=== PATIENT | female | born 1930 | race Caucasian/White ===

== ENCOUNTER 2016-07-26 11:10 | Inpatient (IN) | payer MEDICARE, OTHER ==
[~2016-07-26] VITALS: Ht 160 cm; Wt 72.9 kg
[2016-07-26] MEDS ORDERED: SODIUM CHLORIDE 0.9% 1,000 ML IV ONE (11:26)
[2016-07-26 12:12] LABS: Basophils # (auto) 0 uL; Basophils % (auto) 0.1 % (0.0-2.0); Eosinophils # (auto) 0.2 uL; Eosinophils % (auto) 1.3 % (0.0-7.0); Hematocrit 34.8 % (36.0-46.0); Hemoglobin 11.8 g/dL (12.2-16.2); Lymphocytes # (auto) 2.2 uL; Lymphocytes % (auto) 16.4 % (10.0-50.0); Mean Corpuscular Hemoglobin 30.8 pg (28.0-32.0); Mean Corpuscular Hgb Conc. 33.9 g/dL (32.0-36.0); Mean Platelet Volume 9.6 fL (7.4-10.4); Monocytes # (auto) 1.4 uL; Monocytes % (auto) 9.9 % (0.0-12.0); Neutrophils # (auto) 9.9 uL; Neutrophils % (auto) 72.3 % (37.0-80.0); Platelet Count (auto) 278 10^3/uL (140-450); Red Cell Distribution Width 13.5 % (11.6-16.0); White Blood Cell 13.6 10^3/uL (4.4-10.8)
[2016-07-26 12:33] LABS: INR 1.14 (0.9-1.15); Partial Thromboplastin Time 24.1 sec (22.64-33.71); Prothrombin Time 11.7 sec (9.37-12.3)
[2016-07-26 12:48] LABS: Albumin 3.1 g/dL (3.4-5.0); BUN/Creatinine Ratio 13.5; Bilirubin, Total 0.3 mg/dL (0.2-1.0); Total Protein 6.7 g/dL (6.4-8.2)
[2016-07-26 12:57] LABS: Calcium 13.8 mg/dL (8.5-10.1); Potassium 2.8 mmol/L (3.5-5.1)
[2016-07-26 13:25] LABS: B-Type Natriuretic Peptide 403.28 pg/mL (0-100)
[2016-07-26] MEDS: MAGNESIUM SULFATE 1GM/100ML 100 ML IV SCH ×3 (14:30→17:01)
[2016-07-26] MEDS: POTASSIUM CHL 20MEQ/100ML 100 ML IV SCH ×2 (14:30→16:29)
[2016-07-26 14:35] LABS: Urine Bilirubin Negative (Negative); Urine Blood Negative /uL (Negative); Urine Color Yellow (Yellow); Urine Glucose Normal (Normal); Urine Ketone Negative (Negative); Urine Nitrite Negative (Negative); Urine RBC 1 /hpf (0 - 4); Urine Urobilinogen Normal (Negative); Urine pH 6.5 (5.0-8.0)
[2016-07-26] MEDS ORDERED: PROMETHAZINE HCL 25 MG/ML 1ML IV PRN (17:00)
[2016-07-26] MEDS ORDERED: NITROGLYCERIN 0.4 MG SL TAB SL PRN (17:00)
[2016-07-26] MEDS ORDERED: POTASSIUM CHL 10% (20 MEQ/15ML) ORAL SOLN PO ONE (17:00)
[2016-07-26] MEDS ORDERED: DEXTROSE (50%) 50ML SYRG IV PRN (17:00)
[2016-07-26] MEDS ORDERED: ACETAMINOPHEN 500 MG TAB PO PRN (17:00)
[2016-07-26] MEDS ORDERED: LORazepam 0.5 MG TAB PO PRN (17:00)
[2016-07-26] MEDS ORDERED: TEMAZEPAM 15 MG CAP PO PRN (17:00)
[2016-07-26] MEDS ORDERED: LACTULOSE 20Gm/30ML SOLN PO PRN (17:00)
[2016-07-26] MEDS ORDERED: MORPHINE SULF INJ 2 MG/ML SYRINGE 1ML IV PRN ×2 (17:00)
[2016-07-26] MEDS: SOD CHL 0.9%/ KCL 40MEQ 1,000 ML IV SCH (17:57)
[2016-07-26] MEDS ORDERED: ENOXAPARIN SOD 30 MG/0.3 ML SYRINGE SC SCH (18:00)
[2016-07-26 18:10] LABS: Temperature: 22.9 C (20.0-25.0)
[2016-07-26] MEDS ORDERED: VALS160T43 PO (18:16)
[2016-07-26] MEDS ORDERED: MULTTAB61 PO (18:16)
[2016-07-26] MEDS ORDERED: LEV100T PO (18:16)
[2016-07-26] MEDS ORDERED: AMLO2.5T PO (18:16)
[2016-07-26] MEDS ORDERED: PRAV20TA3 PO (18:16)
[2016-07-26] MEDS ORDERED: EST0625T PO (18:16)
[2016-07-26] MEDS: InsuLIN REG 1unit/0.01ml Soln (100units/ml) SC SCH ×2 (18:19→22:00)
[2016-07-26] MEDS: ACCU-CHEK COMFORT CURVE STRIP VI SCH ×2 (18:19→22:00)
[2016-07-26] MEDS ORDERED: amLODIPine BESYLATE 5 MG TAB PO ONE (19:00)
[2016-07-26] MEDS ORDERED: ENALAPRILAT 1.25 MG/ML-1ML VIAL IV ONE (19:00)
[2016-07-26 20:20] VITALS: BP 172/71
[2016-07-26 22:00] VITALS: BP 172/71
[2016-07-26] MEDS ORDERED: ATORVASTATIN 20 MG TAB PO SCH (22:00)
[2016-07-26] MEDS ORDERED: PANTOPRAZOLE 40 MG TAB PO ONE (22:00)
[2016-07-26] MEDS: METOPROLOL TARTRATE 25 MG TAB PO SCH (22:18)
[2016-07-26] MEDS: POTASSIUM CHL 20 Meq TABLET PO SCH (22:19)
[2016-07-26] MEDS: ATORVASTATIN 20 MG TAB PO SCH (22:19)
[2016-07-26] MEDS: FUROSEMIDE 40 MG/4 ML VIAL IV SCH (22:20)
[2016-07-26] MEDS: NITROGLYCERIN 0.2MG/HR TOPICAL PATCH TD SCH (22:26)
[2016-07-27] VITALS (7 sets, daily range): BP systolic 133–156; BP diastolic 55–74
[2016-07-27 00:27] LABS: Hematocrit 34.2 % (36.0-46.0); Hemoglobin 11.6 g/dL (12.2-16.2)
[2016-07-27 00:32] LABS: Albumin 2.9 g/dL (3.4-5.0); BUN/Creatinine Ratio 13.1; Calcium 11.5 mg/dL (8.5-10.1); Potassium 3.8 mmol/L (3.5-5.1)
[2016-07-27 00:37] LABS: Bilirubin, Total 0.3 mg/dL (0.2-1.0); Total Protein 6.4 g/dL (6.4-8.2)
[2016-07-27] MEDS: FUROSEMIDE 40 MG/4 ML VIAL IV SCH ×2 (05:38→14:07)
[2016-07-27] MEDS: LEVOTHYROXINE SODIUM 100 MCG TAB PO SCH (05:38)
[2016-07-27] MEDS: SOD CHL 0.9%/ KCL 40MEQ 1,000 ML IV SCH ×2 (05:39→19:40)
[2016-07-27] MEDS: POTASSIUM CHL 20 Meq TABLET PO SCH ×3 (05:39→22:19)
[2016-07-27] MEDS: InsuLIN REG 1unit/0.01ml Soln (100units/ml) SC SCH ×4 (05:39→22:00)
[2016-07-27] MEDS: ACCU-CHEK COMFORT CURVE STRIP VI SCH ×4 (05:39→22:20)
[2016-07-27 06:27] LABS: Basophils # (auto) 0 uL; Basophils % (auto) 0.2 % (0.0-2.0); Eosinophils # (auto) 0.4 uL; Eosinophils % (auto) 2.9 % (0.0-7.0); Hematocrit 34.5 % (36.0-46.0); Hemoglobin 11.7 g/dL (12.2-16.2); Lymphocytes # (auto) 2.7 uL; Lymphocytes % (auto) 19.1 % (10.0-50.0); Mean Corpuscular Hgb Conc. 33.9 g/dL (32.0-36.0); Mean Corpuscular Volume 91.4 fL (80.0-100.0); Mean Platelet Volume 10.3 fL (7.4-10.4); Monocytes # (auto) 1.2 uL; Monocytes % (auto) 8.1 % (0.0-12.0); Neutrophils # (auto) 9.9 uL; Neutrophils % (auto) 69.7 % (37.0-80.0); Platelet Count (auto) 258 10^3/uL (140-450); Red Cell Distribution Width 13.3 % (11.6-16.0); White Blood Cell 14.2 10^3/uL (4.4-10.8)
[2016-07-27 06:47] LABS: Albumin 3.2 g/dL (3.4-5.0); BUN/Creatinine Ratio 11.8; Bilirubin, Total 0.4 mg/dL (0.2-1.0); Calcium 11.5 mg/dL (8.5-10.1); Potassium 3.5 mmol/L (3.5-5.1); Total Protein 6.7 g/dL (6.4-8.2)
[2016-07-27] MEDS: ESTROGENS CONJUGATED 0.625 MG PO SCH (10:00)
[2016-07-27] MEDS ORDERED: HCTZ 25 MG TAB PO SCH (10:00)
[2016-07-27] MEDS ORDERED: VALSARTAN 80 MG TAB PO SCH (10:00)
[2016-07-27] MEDS: METOPROLOL TARTRATE 25 MG TAB PO SCH ×2 (10:46→22:20)
[2016-07-27] MEDS: amLODIPine BESYLATE 5 MG TAB PO SCH (10:46)
[2016-07-27] MEDS: MULTIPLE VITAMIN TAB PO SCH (10:47)
[2016-07-27] MEDS: PANTOPRAZOLE 40 MG TAB PO SCH (10:48)
[2016-07-27] MEDS: NITROGLYCERIN 0.2MG/HR TOPICAL PATCH TD SCH (10:49)
[2016-07-27 12:30] LABS: Hematocrit 34.8 % (36.0-46.0); Hemoglobin 11.9 g/dL (12.2-16.2)
[2016-07-27] MEDS ORDERED: LORazepam 2MG/ML-1ML VIAL IV PRN (19:45)
[2016-07-27] MEDS: ATORVASTATIN 20 MG TAB PO SCH (22:19)
[2016-07-28] VITALS (7 sets, daily range): BP systolic 150–158; BP diastolic 61–68
[2016-07-28 05:44] LABS: Basophils # (auto) 0 uL; Basophils % (auto) 0.3 % (0.0-2.0); Eosinophils # (auto) 0.5 uL; Eosinophils % (auto) 3.3 % (0.0-7.0); Hematocrit 34.3 % (36.0-46.0); Hemoglobin 11.8 g/dL (12.2-16.2); Lymphocytes % (auto) 22.6 % (10.0-50.0); Mean Corpuscular Hemoglobin 31.2 pg (28.0-32.0); Mean Corpuscular Hgb Conc. 34.4 g/dL (32.0-36.0); Mean Corpuscular Volume 90.6 fL (80.0-100.0); Monocytes # (auto) 1.3 uL; Monocytes % (auto) 9.8 % (0.0-12.0); Neutrophils # (auto) 8.6 uL; Platelet Count (auto) 236 10^3/uL (140-450); Red Cell Distribution Width 13.3 % (11.6-16.0); White Blood Cell 13.5 10^3/uL (4.4-10.8)
[2016-07-28 06:02] LABS: Calcium 10.7 mg/dL (8.5-10.1); Potassium 3.3 mmol/L (3.5-5.1)
[2016-07-28 06:03] LABS: BUN/Creatinine Ratio 13.2
[2016-07-28 06:17] LABS: Bilirubin, Total 0.4 mg/dL (0.2-1.0); Total Protein 6.8 g/dL (6.4-8.2)
[2016-07-28] MEDS: POTASSIUM CHL 20 Meq TABLET PO SCH ×3 (06:36→22:01)
[2016-07-28] MEDS: LEVOTHYROXINE SODIUM 100 MCG TAB PO SCH (06:36)
[2016-07-28] MEDS: ACCU-CHEK COMFORT CURVE STRIP VI SCH ×4 (06:36→21:44)
[2016-07-28] MEDS: InsuLIN REG 1unit/0.01ml Soln (100units/ml) SC SCH ×4 (06:36→21:44)
[2016-07-28] MEDS ORDERED: ADENOSINE 62 MG in GIVE UN-DILUTED 0 ML IV STA (08:46)
[2016-07-28] MEDS: SOD CHL 0.9%/ KCL 40MEQ 1,000 ML IV SCH ×2 (09:00→23:08)
[2016-07-28] MEDS: ESTROGENS CONJUGATED 0.625 MG PO SCH (10:00)
[2016-07-28] MEDS: MULTIPLE VITAMIN TAB PO SCH (11:06)
[2016-07-28] MEDS: amLODIPine BESYLATE 5 MG TAB PO SCH (11:07)
[2016-07-28] MEDS: PANTOPRAZOLE 40 MG TAB PO SCH (11:07)
[2016-07-28] MEDS: METOPROLOL TARTRATE 25 MG TAB PO SCH ×2 (11:08→22:01)
[2016-07-28] MEDS: NITROGLYCERIN 0.2MG/HR TOPICAL PATCH TD SCH (11:15)
[2016-07-28] MEDS: ATORVASTATIN 20 MG TAB PO SCH (22:01)
[2016-07-29] VITALS (7 sets, daily range): BP systolic 134–170; BP diastolic 63–106
[2016-07-29] MEDS: LEVOTHYROXINE SODIUM 100 MCG TAB PO SCH (05:50)
[2016-07-29] MEDS: POTASSIUM CHL 20 Meq TABLET PO SCH ×3 (05:50→20:43)
[2016-07-29] MEDS: ACCU-CHEK COMFORT CURVE STRIP VI SCH ×4 (05:51→20:44)
[2016-07-29] MEDS: InsuLIN REG 1unit/0.01ml Soln (100units/ml) SC SCH ×4 (05:51→20:44)
[2016-07-29 06:44] LABS: Albumin 2.9 g/dL (3.4-5.0); BUN/Creatinine Ratio 18.2; Calcium 9.4 mg/dL (8.5-10.1); Potassium 3.8 mmol/L (3.5-5.1)
[2016-07-29 07:06] LABS: Bilirubin, Total 0.3 mg/dL (0.2-1.0); Total Protein 6.4 g/dL (6.4-8.2)
[2016-07-29] MEDS: PANTOPRAZOLE 40 MG TAB PO SCH ×2 (09:51→10:00)
[2016-07-29] MEDS: ESTROGEN CONJ 0.3 MG TAB PO SCH ×2 (09:52→10:00)
[2016-07-29] MEDS: amLODIPine BESYLATE 5 MG TAB PO SCH ×2 (09:52→10:00)
[2016-07-29] MEDS: METOPROLOL TARTRATE 25 MG TAB PO SCH ×3 (09:53→20:49)
[2016-07-29] MEDS: MULTIPLE VITAMIN TAB PO SCH (09:53)
[2016-07-29] MEDS: NITROGLYCERIN 0.2MG/HR TOPICAL PATCH TD SCH ×2 (09:54→10:00)
[2016-07-29] MEDS ORDERED: CLOPIDOGREL BISULFATE 75 MG TAB PO ONE (11:45)
[2016-07-29] MEDS: SOD CHL 0.9%/ KCL 40MEQ 1,000 ML IV SCH (13:51)
[2016-07-29] MEDS ORDERED: cefTRIAXone 1GM/50ML D5W 50 ML IV ONE (15:15)
[2016-07-29] MEDS: ATORVASTATIN 20 MG TAB PO SCH (20:44)
[2016-07-30] VITALS (7 sets, daily range): BP systolic 126–177; BP diastolic 55–71
[2016-07-30] MEDS: ACCU-CHEK COMFORT CURVE STRIP VI SCH ×4 (07:00→22:28)
[2016-07-30] MEDS: InsuLIN REG 1unit/0.01ml Soln (100units/ml) SC SCH ×3 (07:00→22:00)
[2016-07-30] MEDS: POTASSIUM CHL 20 Meq TABLET PO SCH ×3 (07:51→22:17)
[2016-07-30] MEDS: LEVOTHYROXINE SODIUM 100 MCG TAB PO SCH (07:52)
[2016-07-30] MEDS: cefTRIAXone 1GM/50ML D5W 50 ML IV SCH (09:24)
[2016-07-30] MEDS: CLOPIDOGREL BISULFATE 75 MG TAB PO SCH (11:16)
[2016-07-30] MEDS: MULTIPLE VITAMIN TAB PO SCH (11:16)
[2016-07-30] MEDS: PANTOPRAZOLE 40 MG TAB PO SCH (11:16)
[2016-07-30] MEDS: METOPROLOL TARTRATE 25 MG TAB PO SCH (17:34)
[2016-07-30] MEDS: amLODIPine BESYLATE 5 MG TAB PO SCH (17:35)
[2016-07-30 19:49] LABS: Basophils # (auto) 0.1 uL; Basophils % (auto) 0.9 % (0.0-2.0); DEFINITIVE VIEW TRANSMISSION; Eosinophils # (auto) 0.3 uL; Eosinophils % (auto) 1.9 % (0.0-7.0); Hematocrit 36.7 % (36.0-46.0); Hemoglobin 12.2 g/dL (12.2-16.2); Lymphocytes % (auto) 20.2 % (10.0-50.0); Mean Corpuscular Hemoglobin 30.7 pg (28.0-32.0); Mean Corpuscular Hgb Conc. 33.2 g/dL (32.0-36.0); Mean Corpuscular Volume 92.6 fL (80.0-100.0); Mean Platelet Volume 10.2 fL (7.4-10.4); Monocytes # (auto) 1.6 uL; Monocytes % (auto) 10.9 % (0.0-12.0); Neutrophils # (auto) 9.8 uL; Neutrophils % (auto) 66.1 % (37.0-80.0); Platelet Count (auto) 291 10^3/uL (140-450); Red Cell Distribution Width 13.1 % (11.6-16.0); White Blood Cell 14.9 10^3/uL (4.4-10.8)
[2016-07-30] MEDS: ATORVASTATIN 20 MG TAB PO SCH (22:25)
[2016-07-31] VITALS (7 sets, daily range): BP systolic 133–173; BP diastolic 59–83
[2016-07-31] MEDS: METOPROLOL TARTRATE 25 MG TAB PO SCH ×3 (00:29→20:31)
[2016-07-31] MEDS: ENALAPRILAT 1.25 MG/ML-1ML VIAL IV PRN ×3 (04:12→08:40)
[2016-07-31] MEDS: ACCU-CHEK COMFORT CURVE STRIP VI SCH ×4 (06:15→21:46)
[2016-07-31] MEDS: InsuLIN REG 1unit/0.01ml Soln (100units/ml) SC SCH ×4 (06:16→22:01)
[2016-07-31] MEDS: LEVOTHYROXINE SODIUM 100 MCG TAB PO SCH (06:40)
[2016-07-31] MEDS: POTASSIUM CHL 20 Meq TABLET PO SCH ×3 (06:40→20:31)
[2016-07-31] MEDS: cefTRIAXone 1GM/50ML D5W 50 ML IV SCH (08:39)
[2016-07-31] MEDS: MULTIPLE VITAMIN TAB PO SCH (09:55)
[2016-07-31] MEDS: PANTOPRAZOLE 40 MG TAB PO SCH (09:55)
[2016-07-31] MEDS: CLOPIDOGREL BISULFATE 75 MG TAB PO SCH (09:55)
[2016-07-31] MEDS: amLODIPine BESYLATE 5 MG TAB PO SCH (09:56)
[2016-07-31] MEDS ORDERED: cloNIDine HCL 0.1 MG TAB PO ONE (11:45)
[2016-07-31] MEDS ORDERED: cloNIDine HCL 0.1 MG TAB PO PRN (11:45)
[2016-07-31] MEDS: HYDROcodone-ACET 5/325MG TAB PO PRN ×2 (13:59→20:32)
[2016-07-31] MEDS: ATORVASTATIN 20 MG TAB PO SCH (20:31)
[2016-08-01] MEDS: HYDROcodone-ACET 5/325MG TAB PO PRN ×3 (03:52→16:43)
[2016-08-01 04:45] VITALS: BP 141/59
[2016-08-01] MEDS: POTASSIUM CHL 20 Meq TABLET PO SCH ×3 (05:46→21:32)
[2016-08-01] MEDS: ACCU-CHEK COMFORT CURVE STRIP VI SCH ×4 (05:47→21:53)
[2016-08-01] MEDS: LEVOTHYROXINE SODIUM 100 MCG TAB PO SCH (05:47)
[2016-08-01] MEDS: InsuLIN REG 1unit/0.01ml Soln (100units/ml) SC SCH ×4 (05:55→21:53)
[2016-08-01] MEDS: cefTRIAXone 1GM/50ML D5W 50 ML IV SCH (08:30)
[2016-08-01 09:00] VITALS: BP 116/56
[2016-08-01] MEDS: PANTOPRAZOLE 40 MG TAB PO SCH (09:32)
[2016-08-01] MEDS: CLOPIDOGREL BISULFATE 75 MG TAB PO SCH (09:32)
[2016-08-01] MEDS: MULTIPLE VITAMIN TAB PO SCH (09:32)
[2016-08-01] MEDS: amLODIPine BESYLATE 5 MG TAB PO SCH (09:33)
[2016-08-01] MEDS: METOPROLOL TARTRATE 25 MG TAB PO SCH ×2 (09:33→21:32)
[2016-08-01] MEDS ORDERED: amLODIPine BESYLATE 5 MG TAB PO SCH (10:00)
[2016-08-01] MEDS ORDERED: MORPHINE SULF INJ 2 MG/ML SYRINGE 1ML IV ONE (10:30)
[2016-08-01] MEDS ORDERED: predniSONE 20 MG TAB PO ONE (12:15)
[2016-08-01 13:00] VITALS: BP 130/69
[2016-08-01 16:54] VITALS: BP 130/72
[2016-08-01] MEDS: ATORVASTATIN 20 MG TAB PO SCH (21:32)
[2016-08-01 21:35] VITALS: BP 117/82
[2016-08-02 05:07] VITALS: BP 129/66
[2016-08-02] MEDS: POTASSIUM CHL 20 Meq TABLET PO SCH ×2 (05:42→14:15)
[2016-08-02] MEDS: InsuLIN REG 1unit/0.01ml Soln (100units/ml) SC SCH ×2 (06:05→11:30)
[2016-08-02] MEDS: ACCU-CHEK COMFORT CURVE STRIP VI SCH ×2 (06:06→12:20)
[2016-08-02] MEDS: LEVOTHYROXINE SODIUM 100 MCG TAB PO SCH (06:08)
[2016-08-02 09:00] VITALS: BP 147/81
[2016-08-02] MEDS ORDERED: MET25T PO (09:28)
[2016-08-02] MEDS ORDERED: PANT40T PO (09:28)
[2016-08-02] MEDS ORDERED: AML5T PO (09:28)
[2016-08-02] MEDS ORDERED: CLOP75TA41 PO (09:38)
[2016-08-02] MEDS: METOPROLOL TARTRATE 25 MG TAB PO SCH (10:00)
[2016-08-02] MEDS ORDERED: predniSONE 20 MG TAB PO SCH (10:00)
[2016-08-02] MEDS ORDERED: CLOPIDOGREL BISULFATE 75 MG TAB PO SCH (10:00)
[2016-08-02] MEDS: amLODIPine BESYLATE 5 MG TAB PO SCH (10:00)
[2016-08-02] MEDS: PANTOPRAZOLE 40 MG TAB PO SCH (10:01)
[2016-08-02] MEDS: MULTIPLE VITAMIN TAB PO SCH (10:01)
[2016-08-02] MEDS: HYDROcodone-ACET 5/325MG TAB PO PRN (10:47)
[2016-08-02 11:28] LABS: Magnesium 1.5 mg/dL (1.6-2.6); Potassium 3.9 mmol/L (3.5-5.1)
[2016-08-02] MEDS ORDERED: MAGNESIUM SULFATE 1GM/100ML 100 ML IV SCH (12:00)
[2016-08-02 12:22] VITALS: BP 147/81
[2016-08-02 13:00] VITALS: BP 141/67
== END 2016-08-02 16:06 | disposition home health service (06) | DRG 77 ==
LOC: EDBD 11:10 → ER 11:29 → TELE-WESTW 11:30
PROVIDERS: ADMIT Internal Medicine; ATTEND Internal Medicine
DX: I67.4 Hypertensive encephalopathy (principal); G93.41 Metabolic encephalopathy; N17.0 Acute kidney failure with tubular necrosis; E44.1 Mild protein-calorie malnutrition; W19.XXXA Unspecified fall, initial encounter; E87.6 Hypokalemia; E83.52 Hypercalcemia; E03.9 Hypothyroidism, unspecified; Z66 Do not resuscitate; I44.7 Left bundle-branch block, unspecified; E78.5 Hyperlipidemia, unspecified; M48.06 Spinal stenosis, lumbar region; E89.0 Postprocedural hypothyroidism; I12.9 Hypertensive chronic kidney disease with stage 1 through stage 4 chronic kidney disease, or unspecified chronic kidney disease; N18.3 Chronic kidney disease, stage 3 (moderate); F03.90 Unspecified dementia, unspecified severity, without behavioral disturbance, psychotic disturbance, mood disturbance, and anxiety; E86.0 Dehydration; E83.42 Hypomagnesemia; E11.22 Type 2 diabetes mellitus with diabetic chronic kidney disease; I35.0 Nonrheumatic aortic (valve) stenosis; I70.8 Atherosclerosis of other arteries; K57.30 Diverticulosis of large intestine without perforation or abscess without bleeding; M10.9 Gout, unspecified; M11.262 Other chondrocalcinosis, left knee; M47.816 Spondylosis without myelopathy or radiculopathy, lumbar region; R56.9 Unspecified convulsions; Y92.009 Unspecified place in unspecified non-institutional (private) residence as the place of occurrence of the external cause; Z79.02 Long term (current) use of antithrombotics/antiplatelets; Z79.899 Other long term (current) drug therapy; Z82.49 Family history of ischemic heart disease and other diseases of the circulatory system; Z83.3 Family history of diabetes mellitus; Z86.73 Personal history of transient ischemic attack (TIA), and cerebral infarction without residual deficits; Z88.6 Allergy status to analgesic agent; Z68.28 Body mass index [BMI] 28.0-28.9, adult; Z90.710 Acquired absence of both cervix and uterus; Z79.4 Long term (current) use of insulin
CPT/HCPCS: 36415; 70450; 70551; 71020; 73502; 73562; 73630; 74176; 78452; 80053; 80061; 81001; 82150; 82270; 82378; 82550; 82565; 82607; 82746; 82962; 83036; 83690; 83735; 83880; 83970; 84132; 84443; 84484; 84520; 84550; 85014; 85018; 85025; 85045; 85379; 85610; 85652; 85730; 86141; 86850; 86900; 86901; 87086; 87493; 93005; 93017; 93306; 95819; 96361; 96365; 96366; 96372; 96375; 97001; 97110; 97116; 97530; J0153; J0696; J1815; J3480

== ENCOUNTER 2017-01-05 18:44 | Emergency (ER) | payer MEDICARE, OTHER ==
[~2017-01-05] VITALS: Ht 165.1 cm; Wt 65.8 kg
[~2017-01-05 18:44] MED LIST: AML5T PO; CLOP75TA41 PO; LEV100T PO; MET25T PO; MULTTAB61 PO; PANT40T PO; PRAV20TA3 PO
[2017-01-05 19:27] LABS: Basophils # (auto) 0 uL; CONDITION Y; Eosinophils # (auto) 0.1 uL; Eosinophils % (auto) 0.5 % (0.0-7.0); Hematocrit 38.2 % (36.0-46.0); Hemoglobin 13.2 g/dL (12.2-16.2); Lymphocytes # (auto) 1.2 uL; Lymphocytes % (auto) 10.2 % (10.0-50.0); Mean Corpuscular Hemoglobin 31.5 pg (28.0-32.0); Mean Corpuscular Hgb Conc. 34.5 g/dL (32.0-36.0); Mean Corpuscular Volume 91.5 fL (80.0-100.0); Mean Platelet Volume 9.1 fL (7.4-10.4); Monocytes # (auto) 0.1 uL; Monocytes % (auto) 0.6 % (0.0-12.0); Neutrophils # (auto) 10.5 uL; Neutrophils % (auto) 88.7 % (37.0-80.0); Platelet Count (auto) 397 10^3/uL (140-450); Red Cell Distribution Width 12.7 % (11.6-16.0); White Blood Cell 11.8 10^3/uL (4.4-10.8)
[2017-01-05 19:44] LABS: Albumin 3.5 g/dL (3.4-5.0); BUN/Creatinine Ratio 21.2; Bilirubin, Total 0.4 mg/dL (0.2-1.0); Calcium 9.2 mg/dL (8.5-10.1); Potassium 3.9 mmol/L (3.5-5.1)
[2017-01-05] MEDS ORDERED: SODIUM CHLORIDE 0.9% 500 ML IVB ONE (20:13)
[2017-01-05] MEDS ORDERED: ONDANSETRON HCL 4 MG/2 ML VIAL IV ONE (20:15)
[2017-01-05] MEDS ORDERED: cefTRIAXone 1GM/50ML D5W 50 ML IV ONE (20:15)
[2017-01-05] MEDS ORDERED: metroNIDAZOLE 500MG/100ML 100 ML IV ONE (20:30)
[2017-01-05 20:38] LABS: Urine Bilirubin Negative (Negative); Urine Blood Negative /uL (Negative); Urine Color Yellow (Yellow); Urine Glucose Normal (Normal); Urine Ketone Negative (Negative); Urine Nitrite Negative (Negative); Urine RBC 1 /hpf (0 - 4); Urine Squamous Epithelial Cell FEW /hpf (<5); Urine Urobilinogen Normal (Negative)
[2017-01-05 21:31] LABS: REFLEX LACTIC ACID YES OR NO YES
[2017-01-05 23:05] VITALS: BP 141/80
== END 2017-01-05 23:32 | disposition short-term general hospital (02) ==
LOC: EDUNIT# 18:44 → ER 18:51
DX: K83.8 Other specified diseases of biliary tract (principal); K57.30 Diverticulosis of large intestine without perforation or abscess without bleeding; E11.9 Type 2 diabetes mellitus without complications; E78.5 Hyperlipidemia, unspecified; I10 Essential (primary) hypertension; Z90.710 Acquired absence of both cervix and uterus; Z88.6 Allergy status to analgesic agent
CPT/HCPCS: 36415; 36600; 71010; 74176; 80053; 81001; 82150; 82805; 83605; 83690; 85025; 87040; 96365; 96368; 96375; 99285; J0696; J2405; J3490; J7030